=== PATIENT | male | born 1995 | race Caucasian/White ===

== ENCOUNTER 2016-10-27 17:06 | Emergency (ER) | payer BC ==
[2016-10-27 17:22] VITALS: BMI 20.4
[2016-10-27] MEDS ORDERED: LIDOCAINE 2% 5 ML (PRESERVATIVE FREE) VIAL INF ONE (17:50)
[2016-10-27 18:12] LABS: AUTOMATED BASOPHIL 0.4 % (0-2); AUTOMATED EOSINOPHIL 0.1 % (0-5); AUTOMATED LYMPH 13.1 % (17-44); AUTOMATED MONOCYTE 6.6 % (3-10); AUTOMATED NEUTROPHIL 79.8 % (45-76)
--- NOTE | 2016-10-27 18:19 | EDPRACDOC ---
- General Information Mode of Arrival: Car - History of Present Illness Onset: 3 DAYS HPI: PATIENT PRESENTS C/O FEVER SINCE YESTERDAY AND STIFF NECK TODAY NAUSEA. NO VOMITING. PATIENT STATES HE JUST RETURNED FROM THE [facility] WHERE HE STAYED BY THE WATER MOST OF THE TIME Treated Infection: None Improves With: Reports: Tylenol Symptoms: Reports: Chills, Fever, Myalgia <Lalito Blair - Last Filed: 10/27/16 22:13> <Pretty Hernandez - Last Filed: 10/28/16 02:13> - General Information Chief Complaint: Fever Stated Complaint: NECK PAIN/FEVER Time Seen by Provider: 10/27/16 17:48 Home Medications: Home Medications No Home Medications 10/27/16 Allergies/Adverse Reactions: Allergies Allergy/AdvReac Type Severity Reaction Status Date / Time No Known Allergies Allergy Verified 10/27/16 17:22 ED Past Medical History - History Reviewed Yes Nurses notes reviewed and agree except as marked Travel Outside of [place] in the Last 3 Months?: No - Patient Medical History Psychological History: Denies: Depression Surgical History: Reports: No Significant History - Social Medical History Smoking Status: Never smoker ETOH: None Substance Abuse: None Lives With: Family Lives In: Home <Lalito Blair - Last Filed: 10/27/16 22:13> EDM Review of Systems - Review of Systems ROS Negative Except as Marked: Yes All systems reviewed and were negative except as marked Constitutional: Fever, Fatigue, Loss of Appetite. negative: Chills, Weakness Eyes: No Symptoms Reported. negative: Redness, Blurred Vision, Double Vision, Discharge, Pain, Light Sensitive, Photophobia Ears: No Symptoms Reported. negative: Pain, Hearing Loss, Drainage, Ear Pulling Throat: No Symptoms Reported. negative: Pain, Swelling Nose: No Symptoms Reported. negative: Congestion, Bleeding, Discharge, Injection, Swelling, Deformity, Ecchymosis, Tender, Abrasion, Laceration Mouth: No Symptoms Reported. negative: Pain, Drooling Respiratory: No Symptoms Reported. negative: Cough, Brassy Cough, Barky Cough, Shortness of Breath, Wheezing, Hemoptysis Cardiovascular: No Symptoms Reported. negative: Chest Pain, Palpitations, Syncope, Edema, Orthopnea, PND, Skin Mottling, Cyanosis Gastrointestinal: No Symptoms Reported. negative: Pain, Constipation, Nausea, Vomiting, Diarrhea, Melena, Formula Intolerance Genitourinary: No Symptoms Reported. negative: Dysuria, Hematuria, Frequency, Discharge, Bleeding, Testicular Pain, Neurological: Headache. negative: Dizziness, Gait Difficulty, Numbness, Seizure , Speech Difficulty, Weakness Musculoskeletal: Neck. negative: Arm, Ankle, Back, Chestwall, Elbow, Forearm, Femur, Foot, Hand, Hip, Knee, Leg, Pelvis, Ribs, Shoulder, Wrist Integumentary: No Symptoms Reported. negative: Itching, Rash, Bruising, Wound Allergic/Immunologic: No Symptoms Reported. negative: Hives, Itching Hematologic: No Symptoms Reported. negative: Lymphadenopathy, Easy Bruising, Easy Bleeding Endocrine: No Symptoms Reported. negative: Weight Gain, Weight Loss Psychiatric: No Symptoms Reported. negative: Anxiety, Depression, Hallucinations, Insomnia, Suicidal <BlairLalito - Last Filed: 10/27/16 22:13> - Physical Exam Constitutional: Alert (Awake) Oriented to: Time, Person, Place Last recorded Vital Signs: Last Vital Signs Temp 99.1 F 10/27/16 17:19 Pulse 89 10/27/16 17:19 Resp 18 10/27/16 17:19 BP 143/80 10/27/16 17:19 Pulse Ox 97 10/27/16 17:19 Oxygen Pulse Oxygen Saturation 97 O2 Device Room Air Oxygen Flow Rate Fraction of Inspired Oxygen ( FIO2) - HEENT Eye Exam: Conjunctival Injection Oropharynx: Normal (Pharynx:Moist without exudate,Gums-no swelling) Tympanic Membrane: Normal ENT EAC: Normal TMJ: Normal Nose: No Symptoms Reported (septum midline) Neck: Meningeal Signs - Respiratory/Cardiovascular Respiratory: Normal - CTA (BBS clear to auscultation without adventitious sounds ) Cardiovascular: Normal (RRR without murmur, gallop or rub) - GI Auscultation: Normal (NABS) Palpation: Normal (Soft,No rebound or guarding, non distended) Tenderness: Non tender Kumar's Sign: Negative - Bladder: Normal - Musculoskeletal Back: Normal (Non-Tender) Extremities: Normal (Normal tone, Pulses 2+ No cyanosis or edema, FROM) - Integumentary Skin: Warm, Dry Lymphatics: Normal (no adenopathy) - Neurologic Memory Impaired: Normal Motor Function: Normal (Normal tone, Pulses 2+ No cyanosis or edema, FROM) Cranial Nerve: Normal (CN II-X11 intact sensation, strength 5/5) Cerebellar: Normal Mood Description: Normal Perception: Normal <Lalito Blair - Last Filed: 10/27/16 22:13> - Physical Exam Last recorded Vital Signs: Last Vital Signs Temp 98.9 F 10/28/16 02:02 Pulse 80 10/28/16 02:02 Resp 18 10/28/16 02:02 BP 120/78 10/28/16 02:02 Pulse Ox 95 10/28/16 02:02 Oxygen Pulse Oxygen Saturation 95 O2 Device Room Air Oxygen Flow Rate Fraction of Inspired Oxygen ( FIO2) <Pretty Hernandez - Last Filed: 10/28/16 02:13> ED Procedures - Lumbar Puncture Informed of risks, benefits and alternatives described: Yes Informed Consent Signed: Written Indication: Possible Infection Prep: Betadine Equipment used during procedure: Hat and Mask, Sterile Gown, Sterile Gloves Anesthetic: Lidocaine Anesthetic Amount (cc): 5 Spinal Needle Gauge used: 22 Needle Insertion Site: L3 Interspace Puncture was successful: Yes Fluid: Clear CSF removed <Lalito Blair - Last Filed: 10/27/16 22:13> - Results 10/27/16 18:00 10/27/16 18:00 WBC 13.7 xk/uL (3.8-10.8) H 10/27/16 18:00 RBC 5.57 xM/uL (4.70-6.10) 10/27/16 18:00 Hgb 15.4 g/dL (14.0-18.0) 10/27/16 18:00 Hct 45.4 % (42-52) 10/27/16 18:00 MCV 82 fL (80-94) 10/27/16 18:00 MCH 27.6 pg (27-32) 10/27/16 18:00 MCHC 33.9 g/dl (33-36) 10/27/16 18:00 RDW 13.3 % (11.5-14.5) 10/27/16 18:00 Plt Count 231 xk/uL (130-400) 10/27/16 18:00 MPV 8.0 fL (7.4-10.4) 10/27/16 18:00 Neut % (Auto) 79.8 % (45-76) H 10/27/16 18:00 Lymph % (Auto) 13.1 % (17-44) L 10/27/16 18:00 [place] % (Auto) 6.6 % (3-10) 10/27/16 18:00 Eos % (Auto) 0.1 % (0-5) 10/27/16 18:00 Baso % (Auto) 0.4 % (0-2) 10/27/16 18:00 Absolute Neuts (auto) 10.82 xk/uL (1.7-8.2) H 10/27/16 18:00 Absolute Lymphs (auto) 1.78 xk/uL (0.65-4.75) 10/27/16 18:00 Lab Results 10/27/16 18:00 WBC 13.7 H RBC 5.57 Hgb 15.4 Hct 45.4 MCV 82 MCH 27.6 MCHC 33.9 RDW 13.3 Plt Count 231 MPV 8.0 Neut % (Auto) 79.8 H Lymph % (Auto) 13.1 L [place] % (Auto) 6.6 Eos % (Auto) 0.1 Baso % (Auto) 0.4 Absolute Neuts (auto) 10.82 H Absolute Lymphs (auto) 1.78 <Lalito Blair - Last Filed: 10/27/16 22:13> - Results 10/27/16 18:00 10/27/16 18:00 WBC 13.7 xk/uL (3.8-10.8) H 10/27/16 18:00 RBC 5.57 xM/uL (4.70-6.10) 10/27/16 18:00 Hgb 15.4 g/dL (14.0-18.0) 10/27/16 18:00 Hct 45.4 % (42-52) 10/27/16 18:00 MCV 82 fL (80-94) 10/27/16 18:00 MCH 27.6 pg (27-32) 10/27/16 18:00 MCHC 33.9 g/dl (33-36) 10/27/16 18:00 RDW 13.3 % (11.5-14.5) 10/27/16 18:00 Plt Count 231 xk/uL (130-400) 10/27/16 18:00 MPV 8.0 fL (7.4-10.4) 10/27/16 18:00 Neut % (Auto) 79.8 % (45-76) H 10/27/16 18:00 Lymph % (Auto) 13.1 % (17-44) L 10/27/16 18:00 [place] % (Auto) 6.6 % (3-10) 10/27/16 18:00 Eos % (Auto) 0.1 % (0-5) 10/27/16 18:00 Baso % (Auto) 0.4 % (0-2) 10/27/16 18:00 Absolute Neuts (auto) 10.82 xk/uL (1.7-8.2) H 10/27/16 18:00 Absolute Lymphs (auto) 1.78 xk/uL (0.65-4.75) 10/27/16 18:00 Sodium 136 mEq/L (137-146) L 10/27/16 18:00 Potassium 3.9 mEq/L (3.5-5.1) 10/27/16 18:00 Chloride 97 mEq/L (98-107) L 10/27/16 18:00 Carbon Dioxide 27 mMOL/L (22-33) 10/27/16 18:00 Anion Gap 16 mEq/L (8-16) 10/27/16 18:00 BUN 14 MG/DL (9-20) 10/27/16 18:00 Creatinine 1.20 MG/DL (0.66-1.25) 10/27/16 18:00 Estimated GFR (MDRD) > 60 mL/min (>=60) 10/27/16 18:00 Glucose 96 MG/DL (70-99) 10/27/16 18:00 Calculated Osmolality 263 MOs/Kg (270-290) L 10/27/16 18:00 Lactic Acid 1.0 mEq/L (0.7-2.1) 10/27/16 18:00 Calcium 9.5 MG/DL (8.4-10.2) 10/27/16 18:00 Total Bilirubin 2.2 MG/DL (0.2-1.3) H 10/27/16 18:00 AST 163 IU/L (17-59) H 10/27/16 18:00 ALT 108 IU/L (21-72) H 10/27/16 18:00 Alkaline Phosphatase 73 IU/L (38-126) 10/27/16 18:00 Total Protein 8.1 G/DL (6.3-8.2) 10/27/16 18:00 Albumin 4.7 G/DL (3.5-5.0) 10/27/16 18:00 Urine Color Sydnie 10/27/16 21:20 Urine Clarity Clear 10/27/16 21:20 Urine pH 6.0 (5.0-8.0) 10/27/16 21:20 Ur Specific [place] 1.020 (1.003-1.035) 10/27/16 21:20 Urine Protein 1+ (NEG/TRACE) H 10/27/16 21:20 Urine Glucose (UA) Neg (NEGATIVE) 10/27/16 21:20 Urine Ketones Neg (NEGATIVE) 10/27/16 21:20 Urine Occult Blood 1+ (NEG/TRACE) H 10/27/16 21:20 Urine Nitrite Neg (NEGATIVE) 10/27/16 21:20 Urine Bilirubin Neg (NEGATIVE) 10/27/16 21:20 Urine Urobilinogen <2.0 MG/DL (0-1) 10/27/16 21:20 Ur Leukocyte Esterase Neg (NEGATIVE) 10/27/16 21:20 Urine RBC 0-2 (0-2) 10/27/16 21:20 Urine WBC 0-2 (0-2) 10/27/16 21:20 Ur Epithelial Cells Occ 10/27/16 21:20 Urine Bacteria Few (NEG/FEW) 10/27/16 21:20 Urine Mucus Occ (NEG/OCC) 10/27/16 21:20 CSF Tube Number #1 10/27/16 19:17 CSF Appearance Colorless 10/27/16 19:17 CSF Spun Appearance Clear 10/27/16 19:17 CSF WBC 1 CU mm (0-5) 10/27/16 19:17 CSF RBC 214 CU mm (<1) H 10/27/16 19:17 CSF Glucose 66 MG/DL (40-70) 10/27/16 19:13 CSF Total Protein 29.0 MG/DL (12-60) 10/27/16 19:13 Urine Opiates Screen Neg (NEGATIVE) 10/27/16 21:20 Ur Oxycodone Screen Neg (NEGATIVE) 10/27/16 21:20 Urine Methadone Screen Neg (NEGATIVE) 10/27/16 21:20 Ur Barbiturates Screen Neg (NEGATIVE) 10/27/16 21:20 Ur Tricyclics Screen Neg (NEGATIVE) 10/27/16 21:20 Ur Phencyclidine Scrn Neg (NEGATIVE) 10/27/16 21:20 Ur Amphetamines Screen Neg (NEGATIVE) 10/27/16 21:20 U Methamphetamines Scrn Neg (NEGATIVE) 10/27/16 21:20 Urine MDMA Screen Neg (NEGATIVE) 10/27/16 21:20 U Benzodiazepines Scrn Neg (NEGATIVE) 10/27/16 21:20 Urine Cocaine Screen Neg (NEGATIVE) 10/27/16 21:20 Ur THC Screen *positive* (NEGATIVE) H 10/27/16 21:20 Microbiology 10/27/16 21:45 Group A Streptococcus Rapid Screen - Final Throat - Rapid Strep NEGATIVE ("NORMAL" value = "NEGATIVE".) 10/27/16 19:13 Gram Stain - Final Cerebral Spinal Fluid 10/27/16 18:40 Influenza Type A Antigen Screen - Final Nasal Washing/Aspirate Or Swab NEGATIVE Please note: A NEGATIVE result does not exclude an influenza virus infection. It is a presumptive result and, if required, confirmation should be done using either a virus culture or an FDA-cleared influenza A&B molecular assay. ("NORMAL" value = "NEGATIVE".) Influenza Type B Antigen Screen - Final NEGATIVE Please note: A NEGATIVE result does not exclude an influenza virus infection. It is a presumptive result and, if required, confirmation should be done using either a virus culture or an FDA-cleared influenza A&B molecular assay. ("NORMAL" value = "NEGATIVE".) Lab Results 10/27/16 10/27/16 10/27/16 21:20 21:20 19:17 WBC RBC Hgb Hct MCV MCH MCHC RDW Plt Count MPV Neut % (Auto) Lymph % (Auto) [place] % (Auto) Eos % (Auto) Baso % (Auto) Absolute Neuts (auto) Absolute Lymphs (auto) Sodium Potassium Chloride Carbon Dioxide Anion Gap BUN Creatinine Estimated GFR (MDRD) Glucose Calculated Osmolality Lactic Acid Calcium Total Bilirubin AST ALT Alkaline Phosphatase Total Protein Albumin Urine Color Sydnie Urine Clarity Clear Urine pH 6.0 Ur Specific [place] 1.020 Urine Protein 1+ H Urine Glucose (UA) Neg Urine Ketones Neg Urine Occult Blood 1+ H Urine Nitrite Neg Urine Bilirubin Neg Urine Urobilinogen <2.0 Ur Leukocyte Esterase Neg Urine RBC 0-2 Urine WBC 0-2 Ur Epithelial Cells Occ Urine Bacteria Few Urine Mucus Occ CSF Tube Number #1 CSF Appearance Colorless CSF Spun Appearance Clear CSF WBC 1 CSF RBC 214 H CSF Glucose CSF Total Protein Urine Opiates Screen Neg Ur Oxycodone Screen Neg Urine Methadone Screen Neg Ur Barbiturates Screen Neg Ur Tricyclics Screen Neg Ur Phencyclidine Scrn Neg Ur Amphetamines Screen Neg U Methamphetamines Scrn Neg Urine MDMA Screen Neg U Benzodiazepines Scrn Neg Urine Cocaine Screen Neg Ur THC Screen *positive* H 10/27/16 10/27/16 10/27/16 19:13 18:00 18:00 WBC 13.7 H RBC 5.57 Hgb 15.4 Hct 45.4 MCV 82 MCH 27.6 MCHC 33.9 RDW 13.3 Plt Count 231 MPV 8.0 Neut % (Auto) 79.8 H Lymph % (Auto) 13.1 L [place] % (Auto) 6.6 Eos % (Auto) 0.1 Baso % (Auto) 0.4 Absolute Neuts (auto) 10.82 H Absolute Lymphs (auto) 1.78 Sodium Potassium Chloride Carbon Dioxide Anion Gap BUN Creatinine Estimated GFR (MDRD) Glucose Calculated Osmolality Lactic Acid 1.0 Calcium Total Bilirubin AST ALT Alkaline Phosphatase Total Protein Albumin Urine Color Urine Clarity Urine pH Ur Specific [place] Urine Protein Urine Glucose (UA) Urine Ketones Urine Occult Blood Urine Nitrite Urine Bilirubin Urine Urobilinogen Ur Leukocyte Esterase Urine RBC Urine WBC Ur Epithelial Cells Urine Bacteria Urine Mucus CSF Tube Number CSF Appearance CSF Spun Appearance CSF WBC CSF RBC CSF Glucose 66 CSF Total Protein 29.0 Urine Opiates Screen Ur Oxycodone Screen Urine Methadone Screen Ur Barbiturates Screen Ur Tricyclics Screen Ur Phencyclidine Scrn Ur Amphetamines Screen U Methamphetamines Scrn Urine MDMA Screen U Benzodiazepines Scrn Urine Cocaine Screen Ur THC Screen 10/27/16 18:00 WBC RBC Hgb Hct MCV MCH MCHC RDW Plt Count MPV Neut % (Auto) Lymph % (Auto) [place] % (Auto) Eos % (Auto) Baso % (Auto) Absolute Neuts (auto) Absolute Lymphs (auto) Sodium 136 L Potassium 3.9 Chloride 97 L Carbon Dioxide 27 Anion Gap 16 BUN 14 Creatinine 1.20 Estimated GFR (MDRD) > 60 Glucose 96 Calculated Osmolality 263 L Lactic Acid Calcium 9.5 Total Bilirubin 2.2 H AST 163 H ALT 108 H Alkaline Phosphatase 73 Total Protein 8.1 Albumin 4.7 Urine Color Urine Clarity Urine pH Ur Specific [place] Urine Protein Urine Glucose (UA) Urine Ketones Urine Occult Blood Urine Nitrite Urine Bilirubin Urine Urobilinogen Ur Leukocyte Esterase Urine RBC Urine WBC Ur Epithelial Cells Urine Bacteria Urine Mucus CSF Tube Number CSF Appearance CSF Spun Appearance CSF WBC CSF RBC CSF Glucose CSF Total Protein Urine Opiates Screen Ur Oxycodone Screen Urine Methadone Screen Ur Barbiturates Screen Ur Tricyclics Screen Ur Phencyclidine Scrn Ur Amphetamines Screen U Methamphetamines Scrn Urine MDMA Screen U Benzodiazepines Scrn Urine Cocaine Screen Ur THC Screen - Additional Information DR. MARTIN CAME TO SEE PT. FAMILY REQUESTED TX TO A FACILITY WITH ID SPECIALISTS. DR. MARTIN SPOKE WITH THE HOSPITALISTS AT [facility] AND PT WAS ACCEPTED FOR TRANSFER. No changes in clinical status or new information from previous documentation. Vital Signs: Temp:98.9 F HR: 80 BP: 120/78 RR: 18 Pox: 95%. Continue with current plan. PT STABLE FOR TRANSFER. <Pretty Hernandez - Last Filed: 10/28/16 02:13> ED Critical Care Note - Critical Care Note Total Time (mins): 60 <Lalito Blair - Last Filed: 10/27/16 22:13> - Departure Yes I personally saw and evaluated the patient. Disposition: Admit IP To This Hospital Education/Counseling Given To: Patient Education/Counseling Given Regarding: Diagnosis, Treatment, Prognosis Decision to Admit Time: 21:19 Decision to admit date: 10/27/16 Decision to admit: from ED - Physician Consulted Hospitalist Time Called: 21:20 Provider Called: Mulugeta Martin Time Team Physician Returned Call: 21:20 <Lalito Blair - Last Filed: 10/27/16 22:13> - Departure Disposition: Trans. to Other Hospital Decision to Transfer Time: 00:30 <Pretty Hernandez - Last Filed: 10/28/16 02:13> - Departure Condition: Stable Final Diagnosis: Febrile illness, Elevated liver enzymes, Neck pain Referrals: Jeremy Schultz II, MD [Primary Care Provider] - One Week Prescriptions: No Action No Home Medications 0 NA DIR #0 info
[2016-10-27 18:33] LABS: BLOOD UREA NITROGEN 14 MG/DL (9-20); CALCIUM 9.5 MG/DL (8.4-10.2); CALCULATED OSMOLALITY 263 MOs/Kg (270-290); CHLORIDE 97 mEq/L (98-107); GLUCOSE 96 MG/DL (70-99); SODIUM LEVEL 136 mEq/L (137-146); TOTAL PROTEIN 8.1 G/DL (6.3-8.2)
--- NOTE | 2016-10-27 18:45 | DIRPT ---
CLINICAL DATA: Headache and neck pain for 3 days. EXAM: CT HEAD WITHOUT CONTRAST CT CERVICAL SPINE WITHOUT CONTRAST TECHNIQUE: Multidetector CT imaging of the head and cervical spine was performed following the standard protocol without intravenous contrast. Multiplanar CT image reconstructions of the cervical spine were also generated. COMPARISON: None. FINDINGS: CT HEAD FINDINGS No evidence of intracranial hemorrhage, brain edema, or other signs of acute infarction. No evidence of intracranial mass lesion or mass effect. No abnormal extraaxial fluid collections identified. Ventricles are normal in size. No skull abnormality identified. CT CERVICAL SPINE FINDINGS No evidence of acute fracture, subluxation, or prevertebral soft tissue swelling. Intervertebral disc spaces are maintained. No evidence of facet arthropathy or other bone lesions. IMPRESSION: Negative noncontrast head CT. No evidence of cervical spine fracture, subluxation, or other acute findings. Electronically Signed By: Jeremy Winslow M.D. On: 10/27/2016 18:42
[2016-10-27] MEDS ORDERED: ONDANSETRON HCL 4 MG/2 ML VIAL IV ONE (19:12)
[2016-10-27] MEDS ORDERED: ACETAMINOPHEN 325 MG/TAB TABLET PO ONE (19:19)
[2016-10-27] MEDS ORDERED: DEXAMETHASONE PF 10 MG/1 ML VIAL IV ONE (19:20)
[2016-10-27] MEDS ORDERED: CEFTRIAXONE 2 GM in D5W 100 ML IV ONE (19:20)
[2016-10-27] MEDS ORDERED: NS 1,000 ML IV ONE (19:22)
[2016-10-27] MEDS ORDERED: ONDANSETRON HCL 4 MG/2 ML VIAL ONE (19:24)
[2016-10-27 19:44] LABS: APPEARANCE(SPUN) CLEAR; TUBE# #1; WBC COUNT #1 1; WBC COUNT #2 0; WBC COUNT AVERAGE 0.5; WBC COUNT DIFFERENCE 1
[2016-10-27 19:45] LABS: # SQ mm COUNTED 9; CSF RBC COUNT 214 CU mm (<1); CSF WBC COUNT 1 CU mm (0-5); DILUTION FACTOR 1x; RBC CELL COUNT %DIFF 0.5 %; RBC COUNT #1 193; RBC COUNT #2 192; RBC COUNT AVERAGE 192.5
[2016-10-27] MEDS ORDERED: Pharmacy Review for Metformin - IV Contrast Given SCH (20:00)
--- NOTE | 2016-10-27 20:21 | DIRPT ---
CLINICAL DATA: Diffuse abdominal pain. Elevated white count, fever. EXAM: CT ABDOMEN AND PELVIS WITH CONTRAST TECHNIQUE: Multidetector CT imaging of the abdomen and pelvis was performed using the standard protocol following bolus administration of intravenous contrast. CONTRAST: 100 cc Isovue 370 IV COMPARISON: None. FINDINGS: Lung bases are clear. No effusions. Heart is normal size. Liver, gallbladder, spleen, pancreas, adrenals and right kidney unremarkable. Left kidney absent, presumably congenital. Nonvisualization of the appendix. No inflammatory process noted in the right lower quadrant. Stomach, large and small bowel are unremarkable. No free fluid, free air or adenopathy. Urinary bladder is decompressed, grossly unremarkable. Aorta is normal caliber. No acute bony abnormality or focal bone lesion. IMPRESSION: Absence of the left kidney, presumably congenital. No acute findings in the abdomen or pelvis. The appendix is not visualized, but there are no secondary signs of appendicitis. Electronically Signed By: Cesar Deng M.D. On: 10/27/2016 20:18
--- NOTE | 2016-10-27 21:20 | DIRPT ---
CLINICAL DATA: Shortness of breath. Fever since yesterday. Stiff neck today. Nausea. Nonsmoker. EXAM: PORTABLE CHEST 1 VIEW COMPARISON: None. FINDINGS: The heart size and mediastinal contours are within normal limits. Both lungs are clear. The visualized skeletal structures are unremarkable. IMPRESSION: No active disease. Electronically Signed By: Pavel Villatoro M.D. On: 10/27/2016 21:18
[2016-10-27 21:32] LABS: ALL NEG? NO
[2016-10-27 21:35] LABS: LEUKOCYTES/URINE NEG (NEGATIVE); NITRITE/URINE NEG (NEGATIVE); RBC/URINE 0-2 (0-2); URINE OCCULT BLOOD 1+ (NEG/TRACE); WBC/URINE 0-2 (0-2)
[2016-10-27 21:40] LABS: MDMA* NEG (NEGATIVE); METHAMPHETAMINES NEG (NEGATIVE); OXYCODONE NEG (NEGATIVE)
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
[2016-10-27] MEDS ORDERED: MORPHINE 2 MG/ML INJECTION IV PRN (23:46)
[2016-10-27] MEDS ORDERED: MORPHINE 2 MG/ML INJECTION IV ONE (23:46)
[2016-10-28 00:02] VITALS: TEMP 98.9
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
[2016-10-28] MEDS ORDERED: MORPHINE 2 MG/ML INJECTION IV ONE (01:23)
[2016-10-28 02:10] VITALS: BP 120/78; PULSE 80
== END 2016-10-28 02:10 | disposition home or self-care (01) ==
LOC: ED 17:06
DX: R50.9 Fever, unspecified (principal); M54.2 Cervicalgia; R79.89 Other specified abnormal findings of blood chemistry
CPT/HCPCS: 36415; 62270; 70450; 71010; 72125; 74177; 80053; 80307; 81001; 82945; 83605; 84157; 85025; 87040; 87070; 87086; 87205; 87529; 87804; 87880; 89050; 89051; 96361; 96365; 96366; 96375; 99284; A9698; J0696; J1100; J2001; J2270; J2405; J3370; J3490; J7060